=== PATIENT | female | born 1935 | race African-American/Black ===

== ENCOUNTER 2016-07-06 13:44 | Emergency (ER) | payer MEDICARE ==
[~2016-07-06 13:44] MED LIST: ANTACID; ANTACID PO; ASAB PO; ASPER-FLEX10 % EX; ATROVENTUD INH; CARDCD120 PO; CARTIA XT240 MG/24 PO; CELEXA20; CELEXA20 PO; CLARIT10 PO; CONSTULOSE PO; EMLA TOP; EUCERIN CREAM; KAYEXUD PO; L80 PO; LEVAQUIN5T PO; LIDODERM T; LIQUID TEARS OPH; LIQUITEARS OP; LOP25 PO; LORTAB 5 PO; MIRALAX POWDER1 PKT PO; NORV5 PO; OS500+D PO; PERI-COLACE1 TAB PO; PROTONIX PO; PROTONIX20 MG PO; Q-PAP PO; RENAL CAPS; RENAL SFTGLS1 MG OR; RENAL SFTGLS1 MG PO; SENSIPAR30 M1 PO; SENSIPAR30 MG PO; SENTAB PO; SPS 15 GM/60 ML; T PO; TROLAMINE SALICYLATE; TUMS 500MG PO; TUMSROLL PO; ULTRAM50 PO; VENTOLIN HFA INH; X5 PO; ZANTAC 150 PO; ZANTAC150 MG PO; ZOCOR10 PO; ZYPREXA10 MG PO; ZYPREXA20 MG PO; [UNRECOGNIZED DRUG - OTHER] MT; [UNRECOGNIZED DRUG - OTHER] PO
[2016-07-06 14:02] LABS: BASOPHILS 0.3 %; BASOPHILS ABSOLUTE 0.02 10/3/uL (0.0-0.16); EOSINOPHILS 2.1 %; EOSINOPHILS ABSOLUTE 0.17 10/3/uL (0.0-0.53); ER CBC TAT 0 Hrs 22 Mins; HEMATOCRIT 38.1 % (36.0-48.0); HEMOGLOBIN 11.8 g/dL (12.0-16.0); IMMATURE GRANULOCYTES 0.1 %; IMMATURE GRANULOCYTES ABSOLUTE 0.01 10/3/uL (0.0-0.11); LYMPHOCYTES 15.3 %; LYMPHOCYTES ABSOLUTE 1.22 10/3/uL (0.67-4.30); MANUAL DIFF NO %; MEAN CORPUSCULAR HEMOGLOB 28.4 pg (26.0-34.0); MEAN CORPUSCULAR VOLUME 91 fL (80-100); MEAN PLATELET VOLUME 10.1 fL (9.2-13.0); MONOCYTES 11.1 %; MONOCYTES ABSOLUTE 0.88 10/3/uL (0.21-1.20); NEUTROPHILS 71.1 %; NEUTROPHILS ABSOLUTE 5.65 10/3/uL (2.02-8.40); PLATELET COUNT 163 10/3/uL (150-400); RBC DISTRIBUTION WIDTH 15.4 % (12.0-16.0); RED CELL COUNT 4.16 10/6/uL (4.0-5.6)
[2016-07-06 14:06] LABS: A/G RATIO 0.5 (0.7-1.9); ALBUMIN 2.4 G/DL (3.5-5.0); ALKALINE PHOSPHATASE 248 U/L (45-117); BUN (BLOOD UREA NITROGEN) 15 MG/DL (6-23); CALCIUM, SERUM 7.6 MG/DL (8.5-10.4); CHLORIDE, SERUM 95 MMOL/L (96-112); CO2 (CARBON DIOXIDE) 31 MMOL/L (24-34); CREATININE 3.57 MG/DL (0.55-1.02); GFR AFRICAN AMERICAN 13 ML/MIN (>=60); GFR NON AFRICAN AMERICAN 11 ML/MIN (>=60); GLOBULIN 4.8 G/DL (2.5-4.1); GLUCOSE, SERUM 95 MG/DL (60-99); POTASSIUM, SERUM 3.2 MMOL/L (3.5-5.3); SGOT(AST) 26 U/L (5-40); SGPT(ALT) 19 U/L (5-65); SODIUM, SERUM 136 MMOL/L (135-148); TOTAL BILIRUBIN 2.7 MG/DL (0-1.2); TOTAL PROTEIN 7.2 G/DL (6.0-8.5)
[2016-07-06 14:08] LABS: INTERNATIONAL NORMAL RATI 1.6 UNITS (-); PROTIME (NOT ORD) 18.8 SEC (12.0-14.5)
[2016-07-06 14:09] LABS: TROPONIN I 0.07 NG/ML (<0.05)
[2016-07-06 15:48] LABS: ER DIFF TAT MAN DIFF NOT NEEDED
== END 2016-07-06 17:18 | disposition home or self-care (01) ==
LOC: ER 13:44
PROVIDERS: Emergency Medicine
DX: I48.92 Unspecified atrial flutter (principal); I12.0 Hypertensive chronic kidney disease with stage 5 chronic kidney disease or end stage renal disease; N18.6 End stage renal disease; I48.91 Unspecified atrial fibrillation; F20.9 Schizophrenia, unspecified; F32.9 Major depressive disorder, single episode, unspecified; D64.9 Anemia, unspecified; Z87.891 Personal history of nicotine dependence; Z88.8 Allergy status to other drugs, medicaments and biological substances; Z79.899 Other long term (current) drug therapy; Z79.82 Long term (current) use of aspirin
CPT/HCPCS: 71010; 80053; 83880; 84484; 85025; 85610; 87040; 93005; 99285

== ENCOUNTER 2016-07-28 18:33 | Inpatient (IN) | payer MEDICARE ==
--- NOTE | ~2016-07-28 | OP ---
Record Of Operation [facility] [address] [place]. [address] NAME: FADIA PHAN : 33 STATUS : ADM IN [facility]#: [id number] AGE: 80 ADM/REG DATE : 07/28/16 MR#: [id number] REPORT SERV DATE: 08/01/16 DICTATED BY: BRIAN CARTER IV DATE: 07/31/16 REPORT STATUS : Draft TRANSCRIBED BY: MODL DATE: 07/31/16 DATE OF PROCEDURE: 07/31/2016 INTUBATION NOTE PREOPERATIVE DIAGNOSIS: Cardiac arrest with resuscitation with inadequate respiratory efforts requiring intubation. POSTOPERATIVE DIAGNOSIS: Cardiac arrest with resuscitation with inadequate respiratory efforts requiring intubation. PROCEDURE: Laryngoscopic intubation with ultimate ventilator setup. CONTRAINDICATIONS: None. CONSENT: No consent is obtained as this is lifesaving procedure. At that time, the patient was listed as a full code, however, we subsequently found out that the patient was a DNR. PREOPERATIVE LABS: The patient's platelet count earlier was 161 and INR was 1.8. ELECTRIC METER INSPECTOR: Brian Carter M.D. METHOD: The patient had a code blue called. She was resuscitated from PEA asystolic arrest with ACLS protocol. After the return of pulse, the patient had no significant respiratory effort. The patient had been being Ambu bag ventilated during the code. The curved laryngoscopic blade was used to visualize the vocal cords. A 7.5 endotracheal tube was advanced through the vocal cords on first pass without difficulty. There was appropriate color change on the CO2 indicator. There were bilateral breath sounds. There was no blood loss. This tube was secured at 21 cm. Chest x-ray demonstrated good positioning. Ventilator settings were CMV, tidal volume of 500 mL, rate of 14, FiO2 100%, PEEP of 5. JENNIFER/YAMILE Brian Carter IV, M.D. / [id number] CC: Madeline Alston M.D.
--- NOTE | ~2016-07-28 | CN ---
Consultation Report [facility] [address] [place]. [address] NAME: FADIA BENITEZ : 31 STATUS : ADM IN PAT#: [id number] AGE: 80 ADM/REG DATE : 07/28/16 MR#: [id number] REPORT SERV DATE: 08/01/16 DICTATED BY: BRIAN CARTER IV DATE: 07/31/16 REPORT STATUS : Draft TRANSCRIBED BY: YAMILE DATE: 07/31/16 CRITICAL CARE CONSULT DATE OF CONSULTATION: 07/31/2016 REASON FOR REQUEST: Status post code, now on mechanical ventilator. HISTORY OF PRESENT ILLNESS: History was obtained from the records. Ms. Benitez is an 80- year-old -Luxembourger female with a history of end-stage renal disease, on dialysis; schizophrenia; paroxysmal atrial fibrillation; mild aortic stenosis; diabetes mellitus; obstructive sleep apnea, noncompliant with CPAP therapy; previous hypertension, now hypotension; elevated cholesterol, who was admitting with a bleeding fistula in the left arm and now status post repair resection and cardiac arrest. The patient was recently hospitalized after a fall, striking her left arm and head. She was in dialysis, and the catheter was removed with the significant bleeding. The patient went to the OR yesterday with resection of a superficially ulcerated fistula site. The patient had a Vas-Cath placed in her right IJ. The patient did have some increased shortness of breath this afternoon for which Lasix was ordered. The nurse was contacted that she had bradycardic event. When she arrived in the room, the patient was unresponsive and had no pulse. Douglas Lynne was called. We arrived within minutes and CPR was in progress. ACLS protocol was followed with the addition of an amp of bicarb because of a dialysis status. She was successfully resuscitated with return of a pulse. Of note, during code, monitor demonstrated both PEA and asystole. After the return of pulse, the patient continued to have inadequate respiratory effort for which she was intubated without event. The patient was moved to the ICU. At that time, it was clarified that the patient had previously been a DNR and that status was resumed. The patient remained on ventilator overnight with wean and extubation tomorrow. The patient is not on bronchodilator medications, on her home medications. She is on supplemental oxygen at nighttime. She does have a previous CT scan demonstrating centrilobular and paraseptal emphysematous changes. The patient reportedly carries a diagnosis of obstructive sleep apnea of unclear severity. She was noncompliant with CPAP therapy. PULMONARY HISTORY: Remarkable for no history of childhood asthma or documented COPD. She does have the paraseptal and central lobular emphysematous changes on CT scan. She was a previous smoker, though the amount is not quantified. IMMUNIZATION STATUS: Not documented. PAST MEDICAL HISTORY: 1. End-stage renal disease, on dialysis. 2. Schizophrenia. 3. Paroxysmal atrial fibrillation. 4. Mild aortic stenosis. Consultation Report [place] [id number] [facility] [place]. [address] NAME: FADIA BENITEZ : 33 STATUS : ADM IN [facility]#: [id number] AGE: 80 ADM/REG DATE : 07/28/16 MR#: [id number] REPORT SERV DATE: 08/01/16 DICTATED BY: BRIAN CARTER IV DATE: 07/31/16 REPORT STATUS : Draft TRANSCRIBED BY: YAMILE DATE: 07/31/16 5. Diabetes mellitus. 6. Obstructive sleep apnea, noncompliant with CPAP. 7. Hypertension, now hypotensive. 8. Elevated cholesterol. PAST SURGICAL HISTORY: 1. She has had bilateral cataract removal. 2. Cholecystectomy. 3. Removal of renal stones. 4. Multiple vascular procedures for dialysis access. ALLERGIES: THERE ARE NO LISTED DRUG ALLERGIES. CURRENT MEDICATIONS: Bactrim DS one twice a day, Celexa 20 mg daily, Claritin 10 mg at bedtime, Cordarone 200 mg daily, DuoNeb every six hours, digoxin 0.25 mg daily, Lopressor 25 mg Saturday, Saturday, , and Saturday with b.i.d. on the other days, Megace 40 mg daily, MiraLAX daily, Pepcid 20 mg daily, Senokot two tablets twice a day, Sensipar 30 mg three times a week, Ultram 50 mg three times a day as needed, Zocor 10 mg at bedtime, Zyprexa 5 mg at bedtime, and vitamin D daily. SOCIAL HISTORY: Remarkable for the previous tobacco use as above. There is no alcohol or illicit drug use. She currently lives in assisted care facility. FAMILY HISTORY: Remarkable for diabetes, coronary artery disease, and breast cancer. REVIEW OF SYSTEMS: A 14-systems reviewed and pertinent positives as noted above. PHYSICAL EXAMINATION: GENERAL: This is an obese, elderly, -Luxembourger female, initially unresponsive, though now seemingly more responsive to stimulation and even to voice. VITAL SIGNS: Temperature is 97.4, pulse is 116 and irregular, respiratory rate is 21, blood pressure was 116/58, and sats are 100%. HEENT: The patient is normocephalic, atraumatic. She has muddy sclerae. Pupils do react to light. She has no drainage from either nasal passage. She is edentulous. She has an orogastric and orotracheal tube in position. NECK: Without any palpable lymphadenopathy or thyromegaly. CHEST: The patient has scattered rhonchi with a prolonged expiratory phase. There are some minimal inspiratory basilar crackles, decreased breath sounds at the extreme left base. No true wheezes are noted. She has a tunneled PermCath catheter in the right IJ and right anterior chest. CARDIOVASCULAR: Jugular venous distention is difficult to elicit. She has 1+ carotid upstrokes. She has an irregularly irregular S1 and S2 with a 2/6 systolic murmur at the right upper sternal border. No clear S3 is noted. Peripheral pulses are diminished. ABDOMEN: Obese, soft. There are hypoactive bowel sounds. There is no palpable Consultation Report [address] [place]. [address] NAME: FADIA BENITEZ : 33 STATUS : ADM IN [facility]#: [id number] AGE: 80 ADM/REG DATE : 07/28/16 MR#: [id number] REPORT SERV DATE: 08/01/16 DICTATED BY: BRIAN CARTER IV DATE: 07/31/16 REPORT STATUS : Draft TRANSCRIBED BY: MODL DATE: 07/31/16 hepatosplenomegaly or mass. Surgical scars noted. EXTREMITIES: Demonstrate very dry skin with two linear cuts in her one heel. There is no clubbing, cyanosis, or palpable cords. NEUROLOGIC: The patient was unresponsive, though was making spontaneous respiratory efforts. She is now becoming more responsive on the ventilator. LABORATORY DATA: Chest x-ray demonstrates chronic elevation of the left hemidiaphragm. There is a lot of the air in the bowel. There are increased interstitial markings. Tube is in good position. The KUB demonstrates a large amount of stool in the more distal bowel with large amount of air in the more proximal bowel. CBC: Hemoglobin 9.6, hematocrit 28.6, platelet count was 161,000, and white blood cell count 11.6, INR is 1.8. Sodium is 144, potassium 3.8, chloride 107, bicarb 28, BUN 17, creatinine 2.91, ionized calcium is 3.86. Albumin is 2.3. Alkaline phosphatase is elevated to 233. Digoxin is 1.1. Blood cultures currently negative. The i-STAT during the code was pH 7.28, pCO2 of 90, pO2 of more than 400. Ionized calcium is 3.4 and sodium is 151. Hematocrit was 31. ASSESSMENT AND PLAN: 1. Respiratory. This is likely primary respiratory event. The patient now on mechanical ventilator settings at CMV, tidal volume of 500, rate of 14, FiO2 100%, PEEP of 5. Blood gas will be obtained in 30 minutes and in the morning. Chest x-ray will be obtained daily. The patient does have a centrilobular emphysematous changes in old CT scan. She will be given Dulera five puffs twice a day with DuoNeb four times a day and every four hours as needed. Ventilator support overnight with wean and extubate tomorrow. 2. Cardiovascular. The patient is now in atrial fibrillation at the rest. We will continue the outpatient medications. Monitor the patient's blood pressure. EKG demonstrates poor R-wave progression, which is similar to her previous study with low voltage. Cardiac enzymes will be obtained. The patient is returned to DNR status. Digoxin level was adequate. Tracheal aspirate sent for Gram stain culture. Lopressor and Cordarone will be continued. 3. Neurologic. DNR now after re-clarification with family by Dr. Sparks, the patient is not a candidate for hypothermia. Thiamine will be given 100 mg daily x3 days. Multivitamin will be given daily. Propofol if needed for sedation with fentanyl p.r.n. 4. Hematologic. Heparin subcu twice a day for deep vein thrombosis prophylaxis. 5. Gastrointestinal. Dulcolax suppository now and repeat as needed for no bowel movement. Lactulose will be given every six hours, if needed. N.p.o. Overnight. 6. Infectious disease. Add procalcitonin with blood in the lab. The previously was unremarkable. Cultures are currently negative. Septra will be continued. 7. Endocrinologic. Thyroid functions will be obtained. Cortisol level will be added to blood in the lab. Level 1 insulin sliding scale. Thank you for consulting us. We will follow the patient with you. Time seen is 1910 hours to 2030 hours for 80 minutes of critical care time. Consultation Report [place] [address] [place]. [address] NAME: FADIA BENITEZ : 31 STATUS : ADM IN PAT#: [id number] AGE: 80 ADM/REG DATE : 07/28/16 MR#: [id number] REPORT SERV DATE: 08/01/16 DICTATED BY: BRIAN CARTER IV DATE: 07/31/16 REPORT STATUS : Draft TRANSCRIBED BY: YAMILE DATE: 07/31/16 JENNIFER/YAMILE Brian Carter IV, M.D. / [id number] CC: Madeline Alston M.D.
--- NOTE | ~2016-07-28 | OP ---
Record Of Operation [facility] [address] [place]. [address] NAME: FADIA PHAN : 33 STATUS : ADM IN PAT#: [id number] AGE: 80 ADM/REG DATE : 07/28/16 MR#: [id number] REPORT SERV DATE: 07/30/16 DICTATED BY: DANE VIVAR DATE: 07/29/16 REPORT STATUS : Draft TRANSCRIBED BY: MODL DATE: 07/29/16 DATE OF PROCEDURE: 07/29/2016 PREOPERATIVE DIAGNOSIS: Exposed ulcerated arterial venous graft with arterial bleeding. POSTOPERATIVE DIAGNOSIS: Exposed ulcerated arterial venous graft, with arterial bleeding, with findings of infected AV graft. SURGERY PERFORMED: 1. Excision of bleeding infected AV graft. 2. Placement of right internal jugular vein PermCath, Vas-Cath. SURGEON: Dane Vivar M.D. SAPPHIRE STYLUS GRINDER: Shahid. DESCRIPTION OF PROCEDURE: The patient was brought to the operating room emergently after developing significant bleeding from her left AV graft on the floor. She was brought to the operating room with pressure held on the arm. There was blood on her gown and on the sheets. She was placed under general anesthesia. The arm was prepped and draped in a sterile fashion as well as the chest. By the time, the patient was prepped, the bleeding had stopped, but there was a large ulcer sitting over the AV graft. Before the graft was attended to, I decided to put a PermCath in her. 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 Ultrasound showing no internal jugular vein on the left. Therefore, the right internal jugular vein was cannulated with ultrasound direction, the needle, wire, and sheath were placed. The patient was noted to have a stent that extended from the innominate all the way across almost occluding the superior vena cava from the left side. I was able to get a wire down through this innominate stent. A tunnel catheter was then placed through a separate incision, brought up to the neck, and then a stripping catheter was placed over the guide wire. The PermCath was placed into the superior vena cava and then the catheter stripped away, repositioning catheter was done until there was good flow noted in the catheter. It was flushed with heparinized saline, sewn to the chest wall with 3-0 Ethilon, the incision at the neck closed with Monocryl U stitch. The left arm was then attended to. Incision was made proximal to the excoriated ulcer area, where the graft was exposed and encircled with vessel loop. I then clamped with a hemostat. The distal end was then divided. The patient was found to have very aggressive back bleeding from the obstruction proximal. It was found that the graft was exposed at this ulcer and obvious infection of the graft. This required resecting of the graft of approximately 6 to 8 cm from the ulcer to obtain a reasonable graft for closure. This was done until adequate exposure and the graft was of such integrity that it would actually hold suture. Again, this was probably 8 cm from the initial transection. This long piece of graft was then removed. The distal end oversewn with 4-0 Prolene and then the proximal end oversewn with 4-0 Prolene. The wound was then irrigated and closed with 3-0 Vicryl for subcutaneous tissue, and then all the skin was closed with interrupted 4-0 Prolene sutures. Record Of Operation [facility] [address] [facility] [place]. [address] NAME: FADIA PHAN : 33 STATUS : ADM IN PAT#: [id number] AGE: 80 ADM/REG DATE : 07/28/16 MR#: [id number] REPORT SERV DATE: 07/30/16 DICTATED BY: DNAE VIVAR DATE: 07/29/16 REPORT STATUS : Draft TRANSCRIBED BY: MODL DATE: 07/29/16 Sterile dressings were applied. Estimated blood loss at the actual operation was probably 150 mL and was doing she lost probably 500 or 600 in her bed prior to the surgery. She was stable at this time of the operation, and was taken back to the recovery room under stable condition. The catheter was in good position so far as her PermCath concerned, will be ready for dialysis. MG/YAMILE Dane Vivar M.D. / [id number] CC: Madeline Alston M.D.
--- NOTE | ~2016-07-28 | DS ---
Discharge Summary [facility] [address] [place]. [address] NAME: FADIA PHAN : 33 STATUS : DIS IN PAT#: [id number] AGE: 80 ADM/REG DATE : 07/28/16 MR#: [id number] REPORT SERV DATE: 08/15/16 DICTATED BY: PRABHJOT SPARKS DATE: 08/14/16 REPORT STATUS : Draft TRANSCRIBED BY: YAMILE DATE: 08/14/16 Data Collection from hospitalization DISCHARGE DIAGNOSES: 1. End-stage renal disease. 2. End of life. 3. Pain. 4. Restlessness. 5. Left upper extremity and right heel wound. 6. Hypertension. 7. Schizophrenia. 8. Anemia of chronic kidney disease. 9. Secondary hyperparathyroidism. 10.Paroxysmal continuous atrial flutter. 11.Orthostatic hypotension. 12.Hypercholesterolemia. 13.Gastroesophageal reflux disease. 14.Osteoporosis. 15.Past history of tuberculosis. 16.Past history of xeroderma. CONSULTATIONS: 1. Jann Carter M.D. 2. Dane Martin M.D. 3. AMBAR Ames. PROCEDURES PERFORMED: 1. Excision of bleeding infected AV graft, placement of right internal jugular vein PermCath, Vas-Cath on 07/29/2016. 2. Laryngoscopic intubation with ventilator setup on 07/31/2016. DISPOSITION: [facility]. HOSPITAL COURSE: This was an 80-year-old female who had end-stage renal disease and was on hemodialysis with paroxysmal atrial flutter who lived at [facility]. The patient was noted to have some bleeding from her AV fistula late in the evening on 07/28/2016 and was sent to the emergency room for further evaluation. In the emergency room, the emergency room physician did not notice any active bleeding; however, she did have a scab at the site of the fistula of the left upper extremity and also had enlargement of the left breast in comparison to the right. There was no ecchymosis or apparent hematoma as noticed on the breast test or emergency room physician's report. The patient was admitted to the hospital at this time for further evaluation and treatment. Upon admission, dialysis therapy would be continued. White count was 14.2. The patient was on amiodarone and metoprolol for atrial flutter. She was going to be placed on electrolyte protocol. She was currently on Zyprexa and Celexa for her depression. White blood cell count was elevated. Procalcitonin level was going to be checked. The patient was not on any antibiotics at this time. The patient was seen by Dr. Dane Martin. The patient was Discharge Summary [place] [address] [place]. [address] NAME: FADIA PHAN : 33 STATUS : DIS IN PAT#: [id number] AGE: 80 ADM/REG DATE : 07/28/16 MR#: [id number] REPORT SERV DATE: 08/15/16 DICTATED BY: PRABHJOT SPARKS DATE: 08/14/16 REPORT STATUS : Draft TRANSCRIBED BY: YAMILE DATE: 08/14/16 felt to have an exposed ulcerated arterial venous graft with arterial bleeding and findings as infected AV graft. It was felt that she would need to undergo surgical intervention. She was taken to the operating room by Dr. Dane Martin where she underwent the above- mentioned procedure. She tolerated this well, and there were no complications. The patient had also been seen by Mary Pastrana. Hemodialysis therapy was going to be continued. The patient remained n.p.o. for now. She had obstructive sleep apnea, but refused to use CPAP. On 07/30/2016, she seemed to be doing okay. Dialysis therapy was performed. She seemed to be feeling better. She had occasional pain in the left upper extremity. Chest x-ray showed no infiltrate. White blood cell count was 14.2. She was to avoid moving the left shoulder. She had no shortness of breath. On 07/31/2016, she did complain of pain in the right heel that had started several days previously. Her speech was garbled. Alkaline phosphatase was elevated, this was improving, it was felt probably secondary to humeral fracture. Amiodarone and metoprolol were continued. The patient was seen by Dr. Jann Carter, status post code. The patient had had a bradycardic event and had an increased shortness of breath. Lasix had been ordered. The nurse arrived and the patient was unresponsive and had no pulse. Douglas Lynne was called. CPR was in progress. ACLS protocol was followed with the addition of an amp of bicarb drip because of her dialysis status. She was successfully resuscitated with return of spontaneous pulse. During the code, the monitor demonstrated both PEA and asystole. After return of the pulse, she continued to have an adequate respiratory effort for which she had been intubated without event. She was moved to the ICU. She had previously been a DNR code status and this status was resumed. The following day, chest x-ray did reveal some atelectasis. She had a few upper airway sounds. No further dialysis therapy was planned. The patient's family signed a DNR code status with comfort care. Her condition continued to decline. Later on the evening of 08/03/2016 she was found without blood pressure, pulse, or respirations. She was pronounced at 8:30 p.m. and released to the above-mentioned home. Information collected by: Nanette Vinson I submit the above information as my discharge summary. TG/MODL Prabhjot Sparks M.D. / [id number] CC: Elle Leone M.D.
--- NOTE | ~2016-07-28 | HP ---
History And Physical [place] [id number] [facility] [place]. [address] NAME: FADIA PHAN : [phone] STATUS : ADM IN [facility]#: [id number] AGE: 80 ADM/REG DATE : 07/28/16 MR#: [id number] REPORT SERV DATE: 08/01/16 DICTATED BY: LISHA ALSTON DATE: 08/01/16 REPORT STATUS : Draft TRANSCRIBED BY: MODL DATE: 08/01/16 DATE OF ADMISSION: 07/28/2016 CHIEF COMPLAINT: Bleeding from AV fistula. HISTORY OF PRESENT ILLNESS: This is an 80-year-old female with end-stage renal disease, on hemodialysis with paroxysmal atrial flutter, who lives at [facility]. The patient was noted to have some bleeding from her AV fistula late in the evening on 07/28 and was sent to the emergency room for further evaluation. In the ER, the ER physician did not notice any active bleeding, however, she did have a scab at the site of fistula on her left upper extremity and also had enlarged left breast in comparison to the right. There was no ecchymosis or apparent hematoma as noticed on the breast test or ER physician's report, and the patient was admitted to the hospital for a vascular consult to be done for management of the bleeding fistula. The patient was seen by Vascular and Nephrology on 07/29/2016 and a decision was made to take her to surgery for resection of the left upper extremity AV graft. This was followed by placement of right IJ Perma-Cath. The patient is currently in the CV ICU, groggy likely from the anesthesia, but is arousable. She is not able to answer questions and goes back to sleep within a few seconds of opening her eyes. REVIEW OF SYSTEMS: Could not be performed as patient was very groggy and sleepy. PAST MEDICAL HISTORY: Includes schizophrenia; end-stage renal disease, on hemodialysis; anemia of chronic kidney disease; secondary hyperparathyroidism; paroxysmal continuous atrial flutter; hypertensive heart; chronic kidney disease; orthostatic hypotension; hypercholesterolemia; GERD; osteoporosis; past personal history of tuberculosis; xeroderma. FAMILY HISTORY: Details could not be obtained as patient was very drowsy. SOCIAL HISTORY: Patient currently lives at [facility], where she undergoes dialysis at the same [facility]. ALLERGIES: SHE IS ALLERGIC TO CELEBREX, DEVELOPED A HEADACHE. MEDICATIONS: Please see [facility] for details of medications, but in brief, she is on Megace, tramadol, Sensipar, metoprolol, vitamin D3, digoxin, amiodarone, Lortab, Ativan, Zyprexa, K- Phos, Ultram, Tylenol, Tums, simvastatin, Senokot, ranitidine, MiraLAX, Celexa, Biotene mouth spray, aspirin, trolamine, lidocaine, Eucerin, albuterol. PHYSICAL EXAMINATION: VITAL SIGNS: Temperature 98.6, pulse 74, blood pressure 101/66, 98% on 2 L of oxygen. GENERAL: The patient is asleep, arousable, but not able to hold a conversation. HEENT: Lips are dry. CHEST: Reveals left breast larger than the right, which is chronic. HEART: Rhythm is irregularly irregular. RESPIRATORY: Conducted upper airway sounds are heard bilaterally. History And Physical [address] [address] NAME: FADIA PHAN : 31 STATUS : ADM IN [facility]#: [id number] AGE: 80 ADM/REG DATE : 07/28/16 MR#: [id number] REPORT SERV DATE: 08/01/16 DICTATED BY: LISHA ALSTON DATE: 08/01/16 REPORT STATUS : Draft TRANSCRIBED BY: YAMILE DATE: 08/01/16 ABDOMEN: Soft, nontender, nondistended. Bowel sounds are present. EXTREMITIES: Heels are okay. LABS: White count 14.2, hemoglobin 8.6, hematocrit 26.3, platelets 186. Sodium 141, potassium 3.8, chloride 104, bicarb 27, BUN 32, creatinine 3.62, glucose 82, calcium low at 6.8. ASSESSMENT AND PLAN: 1. End-stage renal disease, on hemodialysis. We will continue dialysis per Renal. 2. Status post resection of AV graft for bleeding fistula. We are monitoring her hemoglobin and hematocrit. Further management will be per Vascular. The patient has received one unit of packed RBCs during surgery. 3. Atrial flutter. The patient is on amiodarone and metoprolol. Heart rate is controlled at this time. 4. Hypercalcemia. We will place her on electrolyte protocol. 5. Depression. Currently on Zyprexa and Celexa. Will continue the same. 6. Elevated WBCs. White count was normal in the emergency room, but is higher today possibly due to stress of surgery. We will check a procalcitonin. Patient is not on any antibiotics at this time. Will make a decision depending on procalcitonin and repeat white count. CODE STATUS: DNR, limited additional interventions. MALATHI/YAMILE Lisha Alston M.D. / [id number] CC: Lisha Alston M.D.
[2016-07-28 18:46] LABS: BASOPHILS 0.4 %; BASOPHILS ABSOLUTE 0.04 10/3/uL (0.0-0.16); EOSINOPHILS 2.4 %; EOSINOPHILS ABSOLUTE 0.25 10/3/uL (0.0-0.53); HEMOGLOBIN 9.5 g/dL (12.0-16.0); IMMATURE GRANULOCYTES 0.4 %; IMMATURE GRANULOCYTES ABSOLUTE 0.04 10/3/uL (0.0-0.11); LYMPHOCYTES 19.5 %; LYMPHOCYTES ABSOLUTE 2.02 10/3/uL (0.67-4.30); MEAN PLATELET VOLUME 9.5 fL (9.2-13.0); MONOCYTES 8.8 %; MONOCYTES ABSOLUTE 0.91 10/3/uL (0.21-1.20); NEUTROPHILS 68.5 %; NEUTROPHILS ABSOLUTE 7.09 10/3/uL (2.02-8.40); PLATELET COUNT 184 10/3/uL (150-400); RBC DISTRIBUTION WIDTH 16.3 % (12.0-16.0); WHITE BLOOD CELLS 10.4 10/3/uL (4.5-10.5)
[2016-07-28 18:48] LABS: HEMATOCRIT 28.9 % (36.0-48.0); MANUAL DIFF NO %; MEAN CORPUS HGB CONC 32.9 g/dL (32.0-36.0); MEAN CORPUSCULAR VOLUME 88.1 fL (80-100); RED CELL COUNT 3.28 10/6/uL (4.0-5.6)
[2016-07-28 19:03] LABS: A/G RATIO 0.4 (0.7-1.9); ALBUMIN 1.8 G/DL (3.5-5.0); ALKALINE PHOSPHATASE 298 U/L (45-117); BUN (BLOOD UREA NITROGEN) 30 MG/DL (6-23); CALCIUM, SERUM 6.3 MG/DL (8.5-10.4); CHLORIDE, SERUM 103 MMOL/L (96-112); CO2 (CARBON DIOXIDE) 29 MMOL/L (24-34); CREATININE 3.15 MG/DL (0.55-1.02); GFR AFRICAN AMERICAN 15 ML/MIN (>=60); GFR NON AFRICAN AMERICAN 13 ML/MIN (>=60); GLOBULIN 4.3 G/DL (2.5-4.1); GLUCOSE, SERUM 101 MG/DL (60-99); POTASSIUM, SERUM 3.8 MMOL/L (3.5-5.3); SGOT(AST) 27 U/L (5-40); SGPT(ALT) 15 U/L (5-65); SODIUM, SERUM 141 MMOL/L (135-148); TOTAL BILIRUBIN 1.2 MG/DL (0-1.2); TOTAL PROTEIN 6.1 G/DL (6.0-8.5)
[2016-07-28] MEDS ORDERED: CELEXA20 PO (20:15)
[2016-07-28] MEDS ORDERED: ASAB PO (20:15)
[2016-07-28] MEDS ORDERED: ZANTAC 150 PO (20:16)
[2016-07-28] MEDS ORDERED: PERI-COLACE1 TAB PO (20:16)
[2016-07-28] MEDS ORDERED: MIRALAX POWDER1 PKT PO (20:16)
[2016-07-28] MEDS ORDERED: ZYRTEC ALLGY10 MG PO (20:17)
[2016-07-28] MEDS ORDERED: ZOCOR10 PO (20:17)
[2016-07-28] MEDS ORDERED: [UNRECOGNIZED DRUG - OTHER] PO (20:17)
[2016-07-28] MEDS ORDERED: RENA-VITE PO (20:18)
[2016-07-28] MEDS ORDERED: ULTRAM50 PO ×2 (20:18→20:24)
[2016-07-28] MEDS ORDERED: 8 HOUR650 MG PO (20:19)
[2016-07-28] MEDS ORDERED: CORDARONE PO (20:19)
[2016-07-28] MEDS ORDERED: LAN125 PO (20:20)
[2016-07-28] MEDS ORDERED: VITAMIN D2000 UNIT PO (20:21)
[2016-07-28] MEDS ORDERED: LOP25 PO (20:21)
[2016-07-28] MEDS ORDERED: MEGACEUDL PO (20:22)
[2016-07-28] MEDS ORDERED: SENSIPAR30 MG PO (20:22)
[2016-07-28] MEDS ORDERED: HYPOTEARS OPH S15 ML OPH (20:23)
[2016-07-28] MEDS ORDERED: ZOFRAN4 PO (20:24)
[2016-07-28] MEDS ORDERED: ATIVAN 2 MG/ML PO (20:25)
[2016-07-28] MEDS ORDERED: NORCO1 TA1 PO (20:40)
[2016-07-28] MEDS ORDERED: ZYPREXA10 MG PO (20:43)
[2016-07-29 05:46] LABS: BASOPHILS 0.5 %; BASOPHILS ABSOLUTE 0.04 10/3/uL (0.0-0.16); EOSINOPHILS 2.9 %; EOSINOPHILS ABSOLUTE 0.24 10/3/uL (0.0-0.53); HEMATOCRIT 27.4 % (36.0-48.0); HEMOGLOBIN 8.9 g/dL (12.0-16.0); IMMATURE GRANULOCYTES 0.2 %; IMMATURE GRANULOCYTES ABSOLUTE 0.02 10/3/uL (0.0-0.11); LYMPHOCYTES 23.8 %; MEAN CORPUS HGB CONC 32.5 g/dL (32.0-36.0); MEAN CORPUSCULAR HEMOGLOB 28.1 pg (26.0-34.0); MEAN CORPUSCULAR VOLUME 86.4 fL (80-100); MEAN PLATELET VOLUME 9.5 fL (9.2-13.0); MONOCYTES ABSOLUTE 0.67 10/3/uL (0.21-1.20); NEUTROPHILS 64.6 %; NEUTROPHILS ABSOLUTE 5.44 10/3/uL (2.02-8.40); PLATELET COUNT 188 10/3/uL (150-400); RBC DISTRIBUTION WIDTH 16.1 % (12.0-16.0); RED CELL COUNT 3.17 10/6/uL (4.0-5.6); WHITE BLOOD CELLS 8.4 10/3/uL (4.5-10.5)
[2016-07-29 05:53] LABS: MANUAL DIFF NO %
[2016-07-29 05:58] LABS: BUN (BLOOD UREA NITROGEN) 32 MG/DL (6-23); CHLORIDE, SERUM 104 MMOL/L (96-112); CO2 (CARBON DIOXIDE) 27 MMOL/L (24-34); CREATININE 3.62 MG/DL (0.55-1.02); GFR AFRICAN AMERICAN 13 ML/MIN (>=60); GFR NON AFRICAN AMERICAN 11 ML/MIN (>=60); GLUCOSE, SERUM 82 MG/DL (60-99); POTASSIUM, SERUM 3.8 MMOL/L (3.5-5.3); SODIUM, SERUM 141 MMOL/L (135-148)
[2016-07-29 06:00] LABS: CALCIUM, SERUM 6.8 MG/DL (8.5-10.4)
[2016-07-29 11:49] LABS: HEMOGLOBIN 8.2 g/dL (12.0-16.0)
[2016-07-29 15:36] LABS: BASOPHILS 0.5 %; BASOPHILS ABSOLUTE 0.07 10/3/uL (0.0-0.16); EOSINOPHILS 2.3 %; EOSINOPHILS ABSOLUTE 0.33 10/3/uL (0.0-0.53); HEMATOCRIT 26.3 % (36.0-48.0); HEMOGLOBIN 8.6 g/dL (12.0-16.0); IMMATURE GRANULOCYTES 0.4 %; IMMATURE GRANULOCYTES ABSOLUTE 0.05 10/3/uL (0.0-0.11); LYMPHOCYTES 21.3 %; LYMPHOCYTES ABSOLUTE 3.04 10/3/uL (0.67-4.30); MEAN CORPUS HGB CONC 32.7 g/dL (32.0-36.0); MEAN CORPUSCULAR HEMOGLOB 28.5 pg (26.0-34.0); MEAN CORPUSCULAR VOLUME 87.1 fL (80-100); MEAN PLATELET VOLUME 9.9 fL (9.2-13.0); MONOCYTES 6.7 %; MONOCYTES ABSOLUTE 0.96 10/3/uL (0.21-1.20); NEUTROPHILS 68.8 %; NEUTROPHILS ABSOLUTE 9.79 10/3/uL (2.02-8.40); PLATELET COUNT 186 10/3/uL (150-400); RBC DISTRIBUTION WIDTH 15.9 % (12.0-16.0); RED CELL COUNT 3.02 10/6/uL (4.0-5.6)
[2016-07-29 15:37] LABS: MANUAL DIFF NO %; WHITE BLOOD CELLS 14.2 10/3/uL (4.5-10.5)
[2016-07-29 15:44] LABS: INTERNATIONAL NORMAL RATI 1.8 UNITS (-); PARTIAL THROMBO TIME 40.6 SEC (22.5-37.2); PROTIME (NOT ORD) 20.3 SEC (12.0-14.5)
[2016-07-29 19:40] LABS: HEMATOCRIT 25.9 % (36.0-48.0); HEMOGLOBIN 8.5 g/dL (12.0-16.0)
[2016-07-30 04:24] LABS: INTERNATIONAL NORMAL RATI 2.9 UNITS (-); PARTIAL THROMBO TIME 44.6 SEC (22.5-37.2)
[2016-07-30 04:25] LABS: PROTIME (NOT ORD) 29.7 SEC (12.0-14.5)
[2016-07-30 14:26] LABS: BASOPHILS 0.8 %; BASOPHILS ABSOLUTE 0.11 10/3/uL (0.0-0.16); EOSINOPHILS 1.5 %; EOSINOPHILS ABSOLUTE 0.21 10/3/uL (0.0-0.53); IMMATURE GRANULOCYTES 0.4 %; IMMATURE GRANULOCYTES ABSOLUTE 0.05 10/3/uL (0.0-0.11); LYMPHOCYTES 15.1 %; LYMPHOCYTES ABSOLUTE 2.06 10/3/uL (0.67-4.30); MEAN CORPUS HGB CONC 33.7 g/dL (32.0-36.0); MEAN CORPUSCULAR HEMOGLOB 28.6 pg (26.0-34.0); MEAN CORPUSCULAR VOLUME 84.9 fL (80-100); MEAN PLATELET VOLUME 9.6 fL (9.2-13.0); MONOCYTES 7.7 %; MONOCYTES ABSOLUTE 1.05 10/3/uL (0.21-1.20); NEUTROPHILS 74.5 %; NEUTROPHILS ABSOLUTE 10.18 10/3/uL (2.02-8.40); PLATELET COUNT 180 10/3/uL (150-400); RBC DISTRIBUTION WIDTH 16.1 % (12.0-16.0); RED CELL COUNT 2.45 10/6/uL (4.0-5.6); WHITE BLOOD CELLS 13.7 10/3/uL (4.5-10.5)
[2016-07-30 14:29] LABS: MANUAL DIFF NO %
[2016-07-30 14:38] LABS: ALBUMIN 1.9 G/DL (3.5-5.0); BUN (BLOOD UREA NITROGEN) 42 MG/DL (6-23); CALCIUM, SERUM 6.6 MG/DL (8.5-10.4); CHLORIDE, SERUM 102 MMOL/L (96-112); CO2 (CARBON DIOXIDE) 26 MMOL/L (24-34); CREATININE 4.72 MG/DL (0.55-1.02); GFR AFRICAN AMERICAN 9 ML/MIN (>=60); GFR NON AFRICAN AMERICAN 8 ML/MIN (>=60); GLUCOSE, SERUM 122 MG/DL (60-99); PHOSPHORUS, SERUM 3.7 MG/DL (2.5-4.5); POTASSIUM, SERUM 4.4 MMOL/L (3.5-5.3); SODIUM, SERUM 139 MMOL/L (135-148)
[2016-07-31 07:05] LABS: BASOPHILS 0.6 %; BASOPHILS ABSOLUTE 0.07 10/3/uL (0.0-0.16); EOSINOPHILS 2.1 %; EOSINOPHILS ABSOLUTE 0.25 10/3/uL (0.0-0.53); IMMATURE GRANULOCYTES 0.3 %; IMMATURE GRANULOCYTES ABSOLUTE 0.04 10/3/uL (0.0-0.11); LYMPHOCYTES 16.6 %; LYMPHOCYTES ABSOLUTE 1.93 10/3/uL (0.67-4.30); MEAN CORPUS HGB CONC 33.6 g/dL (32.0-36.0); MEAN CORPUSCULAR HEMOGLOB 28.1 pg (26.0-34.0); MEAN CORPUSCULAR VOLUME 83.6 fL (80-100); MEAN PLATELET VOLUME 9.9 fL (9.2-13.0); MONOCYTES 9.6 %; MONOCYTES ABSOLUTE 1.12 10/3/uL (0.21-1.20); NEUTROPHILS 70.8 %; NEUTROPHILS ABSOLUTE 8.22 10/3/uL (2.02-8.40); PLATELET COUNT 161 10/3/uL (150-400); RBC DISTRIBUTION WIDTH 16.1 % (12.0-16.0); WHITE BLOOD CELLS 11.6 10/3/uL (4.5-10.5)
[2016-07-31 07:06] LABS: HEMATOCRIT 28.6 % (36.0-48.0); HEMOGLOBIN 9.6 g/dL (12.0-16.0); RED CELL COUNT 3.42 10/6/uL (4.0-5.6)
[2016-07-31 07:07] LABS: MANUAL DIFF NO %
[2016-07-31 07:19] LABS: INTERNATIONAL NORMAL RATI 1.8 UNITS (-); PARTIAL THROMBO TIME 40.4 SEC (22.5-37.2)
[2016-07-31 07:20] LABS: PROTIME (NOT ORD) 20.9 SEC (12.0-14.5)
[2016-07-31 07:32] LABS: A/G RATIO 0.7 (0.7-1.9); ALBUMIN 2.3 G/DL (3.5-5.0); ALKALINE PHOSPHATASE 233 U/L (45-117); BUN (BLOOD UREA NITROGEN) 17 MG/DL (6-23); CALCIUM, SERUM 6.9 MG/DL (8.5-10.4); CHLORIDE, SERUM 107 MMOL/L (96-112); CO2 (CARBON DIOXIDE) 28 MMOL/L (24-34); CREATININE 2.91 MG/DL (0.55-1.02); DIGOXIN 1.1 NG/ML (0.8-2.0); GFR AFRICAN AMERICAN 17 ML/MIN (>=60); GFR NON AFRICAN AMERICAN 14 ML/MIN (>=60); GLOBULIN 3.5 G/DL (2.5-4.1); GLUCOSE, SERUM 76 MG/DL (60-99); POTASSIUM, SERUM 3.8 MMOL/L (3.5-5.3); SGOT(AST) 40 U/L (5-40); SGPT(ALT) 7 U/L (5-65); SODIUM, SERUM 144 MMOL/L (135-148); TOTAL BILIRUBIN 2.1 MG/DL (0-1.2); TOTAL PROTEIN 5.8 G/DL (6.0-8.5)
[2016-07-31 20:17] LABS: CARBOXYHEMOGLOBIN 0.1 % (0-3); HCO3 (ACTUAL BICARBONATE) 22.1 MEQ/L (23-27); HEMOBLOGIN CONTENT 10.6 G/DL (12-16); INSTRUMENT SERIAL # 8083; METHEMOGLOBIN 0.3 % (0-3); PCO2 (CO2 TENSION) 31 MMHG (35-45); PO2 (O2 TENSION) 443 MMHG (79-93); pH 7.47 (7.37-7.43)
[2016-07-31 20:18] LABS: ALLENS TEST Pos; MODE CMV; SAMPLE Arterial; TIDAL VOLUME 500 ML
[2016-07-31 22:28] LABS: FREE T4 1.28 NG/DL (0.76-1.46)
[2016-07-31 22:32] LABS: TROPONIN I 0.06 NG/ML (<0.05)
[2016-07-31 23:17] LABS: PROCALCITONIN 0.33 ng/mL (<0.5)
[2016-08-01 08:55] LABS: BASOPHILS 0.4 %; BASOPHILS ABSOLUTE 0.06 10/3/uL (0.0-0.16); EOSINOPHILS 0.3 %; EOSINOPHILS ABSOLUTE 0.05 10/3/uL (0.0-0.53); HEMOGLOBIN 8.5 g/dL (12.0-16.0); IMMATURE GRANULOCYTES 0.6 %; LYMPHOCYTES 7.9 %; LYMPHOCYTES ABSOLUTE 1.29 10/3/uL (0.67-4.30); MEAN CORPUS HGB CONC 33.1 g/dL (32.0-36.0); MEAN CORPUSCULAR HEMOGLOB 27.5 pg (26.0-34.0); MEAN CORPUSCULAR VOLUME 83.2 fL (80-100); MEAN PLATELET VOLUME 10.3 fL (9.2-13.0); MONOCYTES 6.7 %; MONOCYTES ABSOLUTE 1.08 10/3/uL (0.21-1.20); NEUTROPHILS 84.1 %; NEUTROPHILS ABSOLUTE 13.66 10/3/uL (2.02-8.40); PLATELET COUNT 147 10/3/uL (150-400); RBC DISTRIBUTION WIDTH 16.2 % (12.0-16.0); RED CELL COUNT 3.09 10/6/uL (4.0-5.6); WHITE BLOOD CELLS 16.2 10/3/uL (4.5-10.5)
[2016-08-01 08:56] LABS: HEMATOCRIT 25.7 % (36.0-48.0); MANUAL DIFF NO %
[2016-08-01 08:57] LABS: A/G RATIO 0.8 (0.7-1.9); ALBUMIN 2.3 G/DL (3.5-5.0); ALKALINE PHOSPHATASE 234 U/L (45-117); CHLORIDE, SERUM 107 MMOL/L (96-112); GLOBULIN 2.8 G/DL (2.5-4.1); GLUCOSE, SERUM 91 MG/DL (60-99); SGPT(ALT) 36 U/L (5-65); SODIUM, SERUM 142 MMOL/L (135-148); TOTAL BILIRUBIN 1.8 MG/DL (0-1.2); TOTAL PROTEIN 5.1 G/DL (6.0-8.5)
[2016-08-01 08:59] LABS: BUN (BLOOD UREA NITROGEN) 24 MG/DL (6-23); CALCIUM, SERUM 6.3 MG/DL (8.5-10.4); CO2 (CARBON DIOXIDE) 21 MMOL/L (24-34); CREATININE 3.87 MG/DL (0.55-1.02); GFR AFRICAN AMERICAN 12 ML/MIN (>=60); GFR NON AFRICAN AMERICAN 10 ML/MIN (>=60); PHOSPHORUS, SERUM 2.6 MG/DL (2.5-4.5); POTASSIUM, SERUM 4.9 MMOL/L (3.5-5.3)
[2016-08-01 09:04] LABS: SGOT(AST) 192 U/L (5-40)
== END 2016-08-04 00:30 | disposition expired | DRG 252 ==
LOC: ER 18:33 → 1SO 22:23 → CVICU 07-29 15:45 → 2SO 07-30 17:47 → MIC 07-31 19:11 → 2SO 08-02 12:05
PROVIDERS: Emergency Medicine; Internal Medicine Geriatric Medicine; Nurse Practitioner; Registered Nurse; Surgery Vascular Surgery
PROC: 05HM33Z Insertion of Infusion Device into Right Internal Jugular Vein, Percutaneous Approach (ICD-10-PCS; principal; 2016-07-29 13:15)
PROC: 03P Upper Arteries, Removal (ICD-10-PCS; 2016-07-29 13:15)
PROC: 5A1D60Z (ICD-10-PCS; 2016-07-29 13:15)
PROC: 5A1945Z Respiratory Ventilation, 24-96 Consecutive Hours (ICD-10-PCS; 2016-07-31)
PROC: 0BH17EZ Insertion of Endotracheal Airway into Trachea, Via Natural or Artificial Opening (ICD-10-PCS; 2016-07-31)
PROC: 5A12012 Performance of Cardiac Output, Single, Manual (ICD-10-PCS; 2016-07-31)
DX: T82.838A Hemorrhage due to vascular prosthetic devices, implants and grafts, initial encounter (principal); N18.6 End stage renal disease; I12.0 Hypertensive chronic kidney disease with stage 5 chronic kidney disease or end stage renal disease; Z99.81 Dependence on supplemental oxygen; I46.9 Cardiac arrest, cause unspecified; E83.51 Hypocalcemia; K21.9 Gastro-esophageal reflux disease without esophagitis; F41.9 Anxiety disorder, unspecified; M19.90 Unspecified osteoarthritis, unspecified site; G47.33 Obstructive sleep apnea (adult) (pediatric); E78.00 Pure hypercholesterolemia, unspecified; F20.9 Schizophrenia, unspecified; Z66 Do not resuscitate; Z88.3 Allergy status to other anti-infective agents; Z80.3 Family history of malignant neoplasm of breast; Z99.2 Dependence on renal dialysis; Z82.49 Family history of ischemic heart disease and other diseases of the circulatory system; Z98.890 Other specified postprocedural states
CPT/HCPCS: 31720; 35903; 36415; 36558; 36600; 71010; 74000; 77001; 80048; 80053; 80069; 80162; 82330; 82533; 82803; 82805; 82947; 82977; 83735; 84132; 84145; 84295; 84439; 84443; 84484; 85014; 85018; 85025; 85610; 85730; 86850; 86900; 86901; 86920; 87040; 87070; 87205; 87641; 92950; 93005; 94002; 94003; 94640; 99285; A9270-GY; C1769; C1894; C9113; G0257; J0610; J0690; J2150; J2370; J2405; J2710; J3010; J3411; P9016; P9045; P9047; Q9966